=== PATIENT | male | born 1945 | race Two or more races ===

== ENCOUNTER 2017-02-05 07:54 | Emergency (ER) | payer OTHER ==
[2017-02-05 08:07] VITALS: TEMP 98.9; BMI 25.8
--- NOTE | 2017-02-05 08:50 | PDOC ---
History of Present Illness - History of Present Illness Initial Comments: 02/05/17 09:00 The patient is a 71 year old male with a PMH of an enlarged prostate, HTN, and HLD who presents to the ER complaining of difficulty urinating since last night around 6:30pm. In addition to decreased urinary output, patient reports experiencing dizziness and nausea. He denies any recent fevers, chills, or headache. He denies any recent vomit, diarrhea or constipation. He denies any recent chest pain or shortness of breath. He denies any recent frequency or hematuria. <Lucille Jones - Last Filed: 02/05/17 09:11> <Marielle Morgan - Last Filed: 02/05/17 10:52> - General Chief Complaint: Urinary Problem Stated Complaint: UNABLE TO URINATE Time Seen by Provider: 02/05/17 08:50 Past History <Lucille Jones - Last Filed: 02/05/17 09:11> - Past Medical History COPD: No GI Disorders: Yes (ENLARGED PROSTATE) HTN: Yes Hypercholesterolemia: Yes - Suicide/Smoking/Psychosocial Hx Smoking History: Never smoked <Marielle Morgan - Last Filed: 02/05/17 10:52> - Past Medical History Allergies/Adverse Reactions: Allergies Allergy/AdvReac Type Severity Reaction Status Date / Time No Known Allergies Allergy Verified 02/05/17 08:06 Home Medications: Ambulatory Orders Atorvastatin Ca [Lipitor] 40 mg PO HS 02/05/17 Tamsulosin HCl [Flomax] 0.4 mg PO DAILY 02/05/17 Telmisartan [Micardis] 40 mg PO DAILY 02/05/17 Review of Systems - Review of Systems Comments:: 02/05/17 09:02 GENERAL/CONSTITUTIONAL: No fever or chills. No weakness. HEAD, EYES, EARS, NOSE AND THROAT: No change in vision. No ear pain or discharge. No sore throat. GASTROINTESTINAL: +nausea, no vomiting, no diarrhea or constipation. GENITOURINARY: +difficulty urinating. No dysuria, frequency, or change in urination. CARDIOVASCULAR: No chest pain or shortness of breath. RESPIRATORY: No cough, wheezing, or hemoptysis. MUSCULOSKELETAL: No joint or muscle swelling or pain. No neck or back pain. SKIN: No rash NEUROLOGIC: +dizziness. No headache, loss of consciousness, or change in strength/sensation. ENDOCRINE: No increased thirst. No abnormal weight change. HEMATOLOGIC/LYMPHATIC: No anemia, easy bleeding, or history of blood clots. ALLERGIC/IMMUNOLOGIC: No hives or skin allergy. <RobertLucille - Last Filed: 02/05/17 09:11> *Physical Exam - Vital Signs Last Vital Signs Temp Pulse Resp BP Pulse Ox 98.9 F 81 16 157/90 97 02/05/17 08:03 02/05/17 08:03 02/05/17 08:03 02/05/17 08:03 02/05/17 08:03 <RobertLucille - Last Filed: 02/05/17 09:11> - Vital Signs Last Vital Signs Temp Pulse Resp BP Pulse Ox 98.9 F 81 16 157/90 97 02/05/17 08:03 02/05/17 08:03 02/05/17 08:03 02/05/17 08:03 02/05/17 08:03 - Physical Exam Comments: GENERAL: Awake, alert, and fully oriented, in no acute distress. Appears uncomfortable. HEAD: No signs of trauma EYES: PERRLA, EOMI, sclera anicteric, conjunctiva clear ENT: Auricles normal inspection, hearing grossly normal, nares patent, oropharynx clear without exudates. Moist mucosa NECK: Normal ROM, supple, no lymphadenopathy, JVD, or masses LUNGS: Breath sounds equal, clear to auscultation bilaterally. No wheezes, and no crackles HEART: Regular rate and rhythm, normal S1 and S2, no murmurs, rubs or gallops ABDOMEN: Soft, +suprapubic tenderness with bladder distension, normoactive bowel sounds. +Guarding, no rebound. No masses EXTREMITIES: Normal range of motion, no edema. No clubbing or cyanosis. No cords, erythema, or tenderness NEUROLOGICAL: Cranial nerves II through XII grossly intact. Normal speech, normal gait SKIN: Warm, Dry, normal turgor, no rashes or lesions noted. <Marielle Morgan - Last Filed: 02/05/17 10:52> Medical Decision Making - Medical Decision Making 02/05/17 10:26 Pt reassessed. Urine output has been stable at 1400 cc. Reports improvement in symptoms. Stable for DC home with outpatient f/u with Dr. Live. <Marielle Morgan - Last Filed: 02/05/17 10:52> *DC/Admit/Observation/Transfer <Lucille Jones - Last Filed: 02/05/17 09:11> - Discharge Dispostion Admit: No <Marielle Morgan - Last Filed: 02/05/17 10:52> Diagnosis at time of Disposition: Urinary retention - Discharge Dispostion Disposition: HOME Condition at time of disposition: Stable - Referrals Referrals: Minh Live MD [Staff Physician] - - Patient Instructions Printed Discharge Instructions: DI for Urinary Retention in Men
[2017-02-05 09:15] LABS: URINE APPEARANCE CLEAR; URINE BILIRUBIN NEGATIVE (NEGATIVE); URINE BLOOD 2+ (NEGATIVE); URINE COLOR STRAW; URINE GLUCOSE (UA) NEGATIVE (NEGATIVE); URINE KETONE NEGATIVE (NEGATIVE); URINE LEUK ESTERASE NEGATIVE (NEGATIVE); URINE NITRITE NEGATIVE (NEGATIVE); URINE PROTEIN NEGATIVE (NEGATIVE); URINE UROBILINOGEN NEGATIVE mg/dL (0.2-1.0)
[2017-02-05 09:24] LABS: URINE BACTERIA RARE /hpf (NONE SEEN); URINE RBC 11 /hpf (0-3); URINE WBC <1 /hpf (3-5)
[2017-02-05 10:37] VITALS: BP 122/74; PULSE 80
[2017-02-05 14:19] LABS: URINE LEUK ESTERASE Negative (NEGATIVE)
== END 2017-02-05 10:35 | disposition home or self-care (01) ==
LOC: JER 07:54
PROC: 0T9B70Z Drainage of Bladder with Drainage Device, Via Natural or Artificial Opening (ICD-10-PCS; principal; 2017-02-05)
DX: R33.9 Retention of urine, unspecified (principal); N40.0 Benign prostatic hyperplasia without lower urinary tract symptoms; I10 Essential (primary) hypertension; E78.5 Hyperlipidemia, unspecified
CPT/HCPCS: 51702; 81003; 81015; 87086; 99282-25

== ENCOUNTER 2018-05-17 07:21 | Day surgery (SDC) | payer OTHER ==
[2018-05-14 18:18] VITALS: BMI 26.6
[2018-05-17] MEDS ORDERED: SUCCINYLCHOLINE CHLORIDE 200 MG/10 ML VIAL ONE (08:48)
[2018-05-17] MEDS ORDERED: PROPOFOL 20 ML ONE ×4 (08:48→09:51)
[2018-05-17] MEDS ORDERED: MIDAZOLAM HCL 2 MG/2 ML SINGLE DOSE VIAL ONE (08:48)
--- NOTE | 2018-05-17 09:16 | HP ---
History & Physical Update - History History: No Change - Physical Physical: No Change - Assessment Assessment: No Change - Plan Plan: No Change
[2018-05-17] MEDS ORDERED: ceFAZolin SODIUM 1 GM VIAL IVPB ONE (09:40)
--- NOTE | 2018-05-17 09:41 | HP ---
DATE OF ADMISSION: 05/17/2018 HISTORY OF PRESENT ILLNESS: Patient is a 72-year-old male with history of benign prostatic hypertrophy with lower urinary tract symptoms, also has history of an elevated PSA for which he underwent a transrectal ultrasound and then ultrasound-guided biopsy. This came back as negative. Physical examination revealed an atrophic nontender right testicle and a left inguinal hernia. The patients alpha-fetoprotein was persistently elevated. HCG was negative. Ultrasound of the testes revealed an atrophic right testicle. CT scan of the abdomen revealed no lymphadenopathy. The patients white count was 4.9, hemoglobin was 15, hematocrit was 47.5. Random glucose was 104. Liver enzymes including LDH were within normal limits. Patients cholesterol profile was also within normal limits. His PT INR was 11.3/1.01. His last BUN was 17 and creatinine was 0.9. His last serum testosterone was 775. It was explained to the patient that since the testicle is not functioning and completely atrophic plus the fact that the alpha-fetoprotein is elevated that he have the testicle removed. He agreed to the decision. His serum testosterones were always within normal limits. The patient will be scheduled for a right inguinal radical orchiectomy and a left inguinal hernia repair. He does have history of high blood pressure, coronary artery disease, and dyslipidemia. MEDICATIONS: He does take Micardis, atorvastatin, and Flomax. ALLERGIES: He denies any allergies. SOCIAL HISTORY: He denies tobacco. PLAN: Again, removal of the atrophic nonfunctioning right testicle was advised. All possible consequences and side effects were explained in detail to the patient and he agrees. Will proceed with the procedure at [facility]. RADAMES RODRIGUEZ M.D. [id number]
[2018-05-17] MEDS ORDERED: ACETAMINOPHEN 325 MG TABLET (FP) PO PRN (10:33)
[2018-05-17] MEDS ORDERED: HYDROmorphone HCl 2 MG/ML VIAL IM ONE (10:34)
--- NOTE | 2018-05-17 10:39 | OP ---
Operative Note - Note: Operative Date: 05/17/18 Pre-Operative Diagnosis: rt. atrophic testis and ^ brigitte feto protien, lt. inguinal hernia Operation: rt. radical orchiectomy Findings: rt. atrophic testis Implants: none Post-Operative Diagnosis: Same as Pre-op Surgeon: Minh Live Anesthesia: General Specimens Removed: rt. testis and cord Estimated Blood Loss (mls): 10 Drains & Tubes with Location: none Drains, Volume Out (mls): 0 Blood Volume Replaced (mls): 0 Fluid Volume Replaced (mls): 0 Operative Report Dictated: Yes
[2018-05-17] MEDS ORDERED: CEPHALEXIN MONOHYDRATE 500 MG CAPSULE (UD) PO SCH (10:45)
[2018-05-17] MEDS ORDERED: BUPIVACAINE HCL/PF 0.5% (5MG/ML) 10 ML VIAL IJ ONE (10:50)
[2018-05-17] MEDS ORDERED: MEPERIDINE HCL 25 MG/ML VIAL ONE (11:47)
--- NOTE | 2018-05-17 11:54 | OP ---
DATE OF OPERATION: 05/17/2018 PROCEDURE: Left inguinal hernia repair. PREOPERATIVE DIAGNOSIS: Left inguinal hernia. POSTOPERATIVE DIAGNOSIS: Left inguinal hernia. SURGEON: Alfredo Fernandez MD HOSE TENDER: ANGELINA Casillas ANESTHESIA: General via laryngeal mask airway. FINDINGS AND PROCEDURE: This is a 72-year-old male who was suffering from a left inguinal hernia. At the same time patient has atrophic right testicle with elevated AFP levels so the patient was also to undergo a right orchiectomy with Dr. Minh Live and a left inguinal hernia repair was advised. Consent was obtained after discussion of the risks, benefits and alternatives to the procedure. Patient was brought to the operating room and placed in the supine position. General anesthesia via laryngeal mask airway was administered. The abdomen was prepped and draped in the usual sterile fashion. Dr. Minh Live proceeded to perform the right orchiectomy via the inguinal approach. After that using 0.5% Marcaine local anesthesia was administered to proposed incision site. An infected hair follicle was noted to be on the way with the inguinal incision so that a 5-cm skin crease incision of the inguinal canal was made excising the hair follicle with a 1 x 0.5-cm ellipse of skin using scalpel blade # 15. Dissection was carried down through the subcutaneous tissue with Bovie cautery until the external oblique aponeurosis was encountered. The external oblique aponeurosis was incised using Bovie cautery and the inguinal canal was further opened using Metzenbaum scissors. Search for a hernia sac was done and was noted to be absent. A large direct hernia was noted with very attenuated transversalis fascia just medial to the inferior epigastric vessel. This was then dissected free of adhesions from the cremaster muscle and then pushed back to the preperitoneal space. A large mesh plug was deployed and the inguinal floor was reconstructed by apposing the conjoint tendon to the Poupart ligament with tightening of the internal ring just to admit the tip of the surgeon's 5th digit. This was done using a continuous Prolene 0 suture. Afterwards the hernia patch was deployed with its keyhole wrapped around the spermatic cord. The exit site of the ilioinguinal nerve was noted to be under the mesh so this was transected to avoid postoperative inguinodynia. The external oblique aponeurosis was apposed with a continuous Vicryl 3-0 suture. The dermis was also apposed with interrupted Vicryl 3-0 suture and the skin was apposed with continuous Biosyn 4-0 suture. The wound closure was reinforced with Steri-Strips and covered with sterile dressing. The estimated blood loss was about 5 mL. Wound class clean. The patient received a gram of Ancef prior to the start of the procedure. Tamara [id number] MTDD
[2018-05-17] MEDS ORDERED: oxyCODONE HCL 5 MG TABLET PO PRN (12:28)
[2018-05-17] MEDS ORDERED: ONDANSETRON 4 MG/2 ML VIAL IVPUSH PRN (12:28)
[2018-05-17] MEDS ORDERED: LACTATED RINGERS SOLUTION 1,000 ML IV SCH (12:30)
--- NOTE | 2018-05-17 12:53 | OP ---
DATE OF OPERATION: 05/17/2018 PREOPERATIVE DIAGNOSIS: Left inguinal hernia and right atrophic testes with elevated alpha-fetoprotein. OPERATIVE PROCEDURE: By Urology is right inguinal exploration and right radical orchiectomy. By General Surgery is left inguinal hernia repair. DESCRIPTION OF PROCEDURE: Under general anesthesia, the patient was prepped and draped in the usual sterile manner. He was placed in the supine position. A right inguinal incision was made. This was carried down to skin and subcutaneous tissue. Rectus fascia was opened in the direction of its fiber using both blunt and sharp dissection. The cord was isolated. Using a vascular clamp, high clamping of the cord was first performed. The testicle was then freed from the gubernaculum and brought out the wound. The testicle appeared to be atrophic and indurated. Therefore, high ligation of the spermatic cord was performed. Then 0 silk ties were used at the proximal edge of the cord for further evaluation in the future. The testicle, the epididymitis, and the spermatic cord were removed en bloc. The wound was irrigated. External oblique fascia was closed with running 3-0 Vicryl suture ligatures. The subcutaneous was closed with 3-0 Vicryl suture ligatures. Marcaine anesthesia was placed into the wound for long-term analgesia. The wound was closed with judy. The patient tolerated the procedure well. The general surgeon will be dictating his portion. Tamara [id number]
[2018-05-17] MEDS ORDERED: MEPERIDINE HCL 25 MG/ML VIAL IVPUSH ONE (12:59)
[2018-05-17 13:21] VITALS: PULSE 77
[2018-05-17 15:36] VITALS: BP 117/69; TEMP 98.6
--- NOTE | 2018-05-17 16:37 | SURG ---
Surgery Kiln Puller Note Kiln Puller: Hawa Casillas PA-C (Suzy) Date of Service: 05/17/18 Diagnosis: Left inguinal hernia Procedure: Left inguinal hernia repair with mesh I was present for the entirety of the operative procedure. For further detail, please refer to operative report. Visit type - Case Type Case Type: Scheduled - Emergency Emergency Visit: No - New patient This patient is new to me today: Yes Date on this admission: 05/17/18 - Critical Care Critical Care patient: No
--- NOTE | 2018-05-17 16:43 | OP ---
Operative Note - Note: Operative Date: 05/17/18 Pre-Operative Diagnosis: Left inguinal hernia Operation: Left inguinal hernia repair with mesh Findings: as dictated Implants: as dictated Post-Operative Diagnosis: Same as Pre-op Surgeon: Alfredo Fernandez Spa Manager: Hawa Casillas Anesthesiologist/TESTING LEAD: Lashonda Campos Anesthesia: General, Local Specimens Removed: Left inguinal nerve, infected hair follicle Estimated Blood Loss (mls): 50 (ml) Fluid Volume Replaced (mls): 1 (L LR ) Operative Report Dictated: Yes
--- NOTE | 2018-05-20 14:57 | PATH ---
Surgical Pathology Report Patient Name: PASTOR JESSICA [facility]. Rec. #: [id number] /Age/Gender: 1945 (Age: 72) / M Account: [id number] Location: [facility] SURGICAL Taken: 05/17/2018 Received: 05/17/2018 Reported: 05/20/2018 Physicians: Minh Live M.D. Specimen(s) Received A: RIGHT TESTICLE AND CORD B: LEFT ABDOMEN C: ILEOINGUINAL NERVE Clinical History Atrophy of testes, left inguinal hernia Final Diagnosis A. TESTICLE AND CORD, RIGHT, RADICAL ORCHIECTOMY: TESTES WITH EXTENSIVE SEMINIFEROUS TUBULE HYALINIZATION. FOCAL AREAS WITH NORMAL SPERMATOGENESIS NOTED. SPERMATIC CORD WITHOUT SIGNIFICANT PATHOLOGIC FINDINGS. NO MALIGNANCY IDENTIFIED. B. LOWER ABDOMEN, LEFT, FOLLICULITIS, EXCISION: SKIN AND UNDERLYING SUBCUTANEOUS TISSUE WITH MARKED ACUTE INFLAMMATION, ABSCESS FORMATION, AND REACTIVE CHANGES. C. ILIOINGUINAL NERVE, EXCISION: BENIGN FIBROVASCULAR AND NERVE TISSUE. Electronically Signed Velia Glaser M.D. Gross Description A. Received in formalin labeled "right testicle and cord," is a 34 g, 4.0 x 3.0 x 1.6 cm testis with a 2.7 x 1.0 x 1.0 cm epididymis and a 5 cm in length portion of spermatic cord. Sectioning reveals monique, spongy, unremarkable testicular parenchyma. No discrete lesion is identified. The spermatic cord appears unremarkable. Tack Welder sections are submitted in 6 cassettes as follows: 1-spermatic cord margin of resection; 2-testicular parenchyma; 3-testicular parenchyma with tunica; 4-testicular parenchyma with epididymis; 5-testicular parenchyma with rete testis; 6-additional spermatic cord. B. Received in formalin labeled "folliculitis from left lower abdomen," is a 1.1 x 0.6 cm monique, elliptical, unoriented portion of skin excised to depth of 1.2 cm. No discrete epidermal lesion is identified. The specimen is serially sectioned. Separately received within the same container are 2 monique-yellow portions of soft tissue averaging 2.5 cm in greatest dimension. The specimen is entirely submitted in 2 cassettes as follows: 1-serially sectioned skin ellipse; 2-separately received soft tissue fragments. C. Received in formalin labeled "ileo-inguinal nerve," is a 3.7 x 0.5 x 0.3 cm monique-gan portion of soft tissue, possibly consistent with a portion of nerve. The specimen is submitted in toto in one cassette. 05/17/201805/17/2018
== END 2018-05-17 14:30 | disposition home or self-care (01) ==
LOC: JASU-SURG 07:21
PROVIDERS: ATTEND Urology
PROC: 0VBF0ZZ Excision of Right Spermatic Cord, Open Approach (ICD-10-PCS; 2018-05-17)
PROC: 0YQ60ZZ Repair Left Inguinal Region, Open Approach (ICD-10-PCS; 2018-05-17)
PROC: 0VT90ZZ Resection of Right Testis, Open Approach (ICD-10-PCS; principal; 2018-05-17 09:00)
PROC: 0VTJ0ZZ Resection of Right Epididymis, Open Approach (ICD-10-PCS; 2018-05-17 09:00)
DX: N50.0 Atrophy of testis (principal); K40.90 Unilateral inguinal hernia, without obstruction or gangrene, not specified as recurrent
CPT/HCPCS: 88302-TC; 88305-TC; 94760

== ENCOUNTER 2019-04-16 07:18 | Day surgery (SDC) | payer OTHER ==
[2019-04-15 16:12] VITALS: BMI 27.7
[2019-04-16 08:45] VITALS: TEMP 97.8
[2019-04-16 09:06] VITALS: PULSE 70
[2019-04-16 13:22] VITALS: BP 144/69
--- NOTE | 2019-04-17 14:12 | PATH ---
Surgical Pathology Report Patient Name: PASTOR JESSICA [facility]. Rec. #: [id number] /Age/Gender: 1945 (Age: 73) / M Account: [id number] Location: [facility]-ENDOSCOPY Taken: 04/16/2019 Received: 04/16/2019 Reported: 04/17/2019 Physicians: Tri Jackson M.D. Specimen(s) Received A: DUODENUM, SECOND PORTION AND BULB B: ANTRUM C: SIGMOID POLYPS D: RECTAL POLYPS Clinical History Adenoma surveillance, occult blood GI bleed Postoperative diagnosis: Erosive gastritis, diverticulosis Final Diagnosis A. DUODENUM, SECOND PORTION AND BULB, BIOPSY: DUODENAL MUCOSA WITHOUT SIGNIFICANT PATHOLOGIC FINDINGS. B. STOMACH, ANTRUM, BIOPSY: GASTRIC ANTRAL MUCOSA WITH MILD CHRONIC GASTRITIS AND FOCAL EROSION. IMMUNOHISTOCHEMICAL STAIN FOR H. PYLORI IS NEGATIVE. C. SIGMOID COLON, POLYPS, BIOPSY: HYPERPLASTIC POLYP. SEPARATE FRAGMENTS OF POLYPOID COLONIC MUCOSA WITH PROMINENT LYMPHOID AGGREGATE. D. RECTAL POLYP, BIOPSY: HYPERPLASTIC POLYP(S). Positive and negative controls (internal if applicable) show appropriate results. Electronically Signed Velia Glaser M.D. Gross Description A. Received in formalin, labeled "biopsy bulb and second portion of duodenum" are 3 monique, irregular portions of soft tissue averaging 0.4 cm. in greatest dimension. The specimens are submitted in toto in one cassette. B. Received in formalin, labeled "antrum biopsy" are 4 monique, irregular portions of soft tissue ranging from 0.2-0.6 cm. in greatest dimension. The specimens are submitted in toto in one cassette. C. Received in formalin, labeled "sigmoid polyps" are 3 monique, irregular portions of soft tissue ranging from 0.2-0.3 cm. in greatest dimension. The specimens are submitted in toto in one cassette. D. Received in formalin, labeled "rectal polyp" is a monique, irregular portion of soft tissue measuring 0.3 cm. in greatest dimension. The specimen is submitted in toto in one cassette. 04/16/2019 saudi04/16/2019
== END 2019-04-16 09:39 | disposition home or self-care (01) ==
LOC: JASU-ENDO 07:18
PROVIDERS: ATTEND Internal Medicine Gastroenterology
PROC: 0DBP8ZX Excision of Rectum, Via Natural or Artificial Opening Endoscopic, Diagnostic (ICD-10-PCS; 2019-04-16)
PROC: 0DB98ZX Excision of Duodenum, Via Natural or Artificial Opening Endoscopic, Diagnostic (ICD-10-PCS; 2019-04-16)
PROC: 0DB78ZX Excision of Stomach, Pylorus, Via Natural or Artificial Opening Endoscopic, Diagnostic (ICD-10-PCS; 2019-04-16)
PROC: 0DBN8ZX Excision of Sigmoid Colon, Via Natural or Artificial Opening Endoscopic, Diagnostic (ICD-10-PCS; principal; 2019-04-16 08:00)
DX: Z86.010 Personal history of colon polyps (principal); D12.5 Benign neoplasm of sigmoid colon; K62.1 Rectal polyp; R19.5 Other fecal abnormalities; K57.30 Diverticulosis of large intestine without perforation or abscess without bleeding; K64.8 Other hemorrhoids; K29.50 Unspecified chronic gastritis without bleeding; K29.60 Other gastritis without bleeding

== ENCOUNTER 2022-09-13 22:15 | Inpatient (IN) | payer OTHER ==
[2022-09-13 23:17] LABS: BASO % 0.3 % (0-2.0); EOS % 0.1 % (0-4.5); HEMOGLOBIN 13.3 GM/dL (11.7-16.9); LYMPH % 7.6 % (8-40); MCH 31.6 pg (25.7-33.7); MEAN CELL VOLUME 92.9 fl (80-96); MEAN PLT VOLUME 7.5 fl (7.5-11.1); MONO % 5.1 % (3.8-10.2); NEUT % 86.9 % (42.8-82.8); PLATELET COUNT 162 10^3/uL (134-434); RBC 4.19 M/mm3 (4.00-5.60); RDW 13.6 % (11.9-15.9); WHITE BLOOD COUNT 12.6 K/mm3 (4.0-10.0)
[2022-09-13 23:27] LABS: INR 1.11 (0.83-1.09); PROTHROMBIN TIME (PATIENT) 12.9 SEC (9.7-13.0)
[2022-09-13 23:30] LABS: ACTIVATED PTT 22.7 SECONDS (25.2-36.5)
[2022-09-13] MEDS ORDERED: ACETAMINOPHEN 1000 MG/100 ML BAG IVPB ONE (23:31)
[2022-09-13] MEDS ORDERED: ACETAMINOPHEN INJECTION 100 ML IVPB ONE (23:38)
[2022-09-13 23:44] LABS: POTASSIUM 3.6 mmol/L (3.5-5.1)
[2022-09-13 23:46] LABS: ALBUMIN 3.6 g/dl (3.4-5.0); CALCIUM 8.5 mg/dL (8.5-10.1)
[2022-09-13 23:47] LABS: BLOOD UREA NITROGEN 19.7 mg/dL (7-18)
[2022-09-13 23:51] LABS: TOT PROT 6.7 g/dl (6.4-8.2)
[2022-09-14] MEDS ORDERED: MELATONIN 1 MG TABLET PO ONE (02:54)
[2022-09-14 05:12] VITALS: BMI 27.1
[2022-09-14 10:59] LABS: HEMATOCRIT 36.2 % (35.4-49); MCH 31.4 pg (25.7-33.7); MCHC 33.2 g/dl (32.0-35.9); MEAN CELL VOLUME 94.6 fl (80-96); MEAN PLT VOLUME 9.1 fl (7.5-11.1); PLATELET COUNT 166 10^3/uL (134-434); RBC 3.83 M/mm3 (4.00-5.60); RDW 13.2 % (11.9-15.9); WHITE BLOOD COUNT 11.9 K/mm3 (4.0-10.0)
[2022-09-14 11:17] LABS: POTASSIUM 3.7 mmol/L (3.5-5.1)
[2022-09-14 11:22] LABS: BLOOD UREA NITROGEN 13.5 mg/dL (7-18); CALCIUM 8.6 mg/dL (8.5-10.1)
[2022-09-14 11:26] LABS: CREATININE 0.8 mg/dL (0.55-1.3)
[2022-09-14 12:09] LABS: EPI CELLS 27 /uL (0-25.1); HYALINE CASTS 0 /uL (0-3.1); URINE APPEARANCE CLEAR; URINE BACTERIA 0 /uL (0-1359); URINE BILIRUBIN NEGATIVE (NEGATIVE); URINE COLOR RED; URINE GLUCOSE (UA) NEGATIVE (NEGATIVE); URINE KETONE NEGATIVE (NEGATIVE); URINE LEUK ESTERASE 2+ (NEGATIVE); URINE NITRITE NEGATIVE (NEGATIVE); URINE PROTEIN 2+ (NEGATIVE); URINE RBC 2219 /uL (0-23.9); URINE UROBILINOGEN 0.2 mg/dL (0.2-1.0); URINE WBC 28 /uL (0-25.8)
[2022-09-14] MEDS: amLODIPine BESYLATE 10 MG TABLET (FP) PO SCH (13:09)
[2022-09-14] MEDS: TAMSULOSIN HCL 0.4 MG CAP PO SCH (13:09)
[2022-09-14] MEDS: LOSARTAN POTASSIUM 50 MG TABLET PO SCH (13:09)
[2022-09-14] MEDS: PANTOPRAZOLE 40 MG TABLET PO SCH (13:09)
[2022-09-14] MEDS: FINASTERIDE 5 MG TABLET (FP) PO SCH (13:10)
[2022-09-14] MEDS: CEFTRIAXONE 1 GM in DEXTROSE 5%-WATER - 50 ML IVPB SCH (16:59)
[2022-09-14] MEDS: MELATONIN 1 MG TABLET PO SCH (21:47)
[2022-09-14] MEDS: ATORVASTATIN CA 10 MG TABLET (FP) PO SCH (21:47)
[2022-09-15 03:28] LABS: EPI CELLS 14 /uL (0-25.1); HYALINE CASTS 1 /uL (0-3.1); PH,URINE 5.5 (5.0-8.0); URINE APPEARANCE CLOUDY; URINE BACTERIA 0 /uL (0-1359); URINE BILIRUBIN NEGATIVE (NEGATIVE); URINE COLOR RED; URINE GLUCOSE (UA) NEGATIVE (NEGATIVE); URINE KETONE NEGATIVE (NEGATIVE); URINE LEUK ESTERASE 3+ (NEGATIVE); URINE NITRITE NEGATIVE (NEGATIVE); URINE PROTEIN TRACE (NEGATIVE); URINE UROBILINOGEN 0.2 mg/dL (0.2-1.0); URINE WBC 217 /uL (0-25.8)
[2022-09-15 06:29] LABS: YEAST NONE SEEN (NEGATIVE)
[2022-09-15] MEDS: TAMSULOSIN HCL 0.4 MG CAP PO SCH (08:44)
[2022-09-15] MEDS: PANTOPRAZOLE 40 MG TABLET PO SCH (10:39)
[2022-09-15] MEDS: CEFTRIAXONE 1 GM in DEXTROSE 5%-WATER - 50 ML IVPB SCH (10:39)
[2022-09-15] MEDS: LOSARTAN POTASSIUM 50 MG TABLET PO SCH (10:40)
[2022-09-15] MEDS: amLODIPine BESYLATE 10 MG TABLET (FP) PO SCH (10:40)
[2022-09-15] MEDS: FINASTERIDE 5 MG TABLET (FP) PO SCH (10:40)
[2022-09-15] MEDS ORDERED: oxyCODONE HCL 5 MG TABLET PO PRN (11:31)
[2022-09-15] MEDS ORDERED: ACETAMINOPHEN 325 MG TABLET (FP) PO PRN (11:31)
[2022-09-15 13:43] LABS: BASO % 0.5 % (0-2.0); EOS % 1.1 % (0-4.5); HEMATOCRIT 39.1 % (35.4-49); HEMOGLOBIN 13.2 GM/dL (11.7-16.9); LYMPH % 17.9 % (8-40); MCH 32.2 pg (25.7-33.7); MCHC 33.7 g/dl (32.0-35.9); MEAN CELL VOLUME 95.6 fl (80-96); MEAN PLT VOLUME 8.6 fl (7.5-11.1); MONO % 7.8 % (3.8-10.2); NEUT % 72.7 % (42.8-82.8); PLATELET COUNT 190 10^3/uL (134-434); RBC 4.09 M/mm3 (4.00-5.60); RDW 13.8 % (11.9-15.9); WHITE BLOOD COUNT 8.3 K/mm3 (4.0-10.0)
[2022-09-15 14:29] LABS: CALCIUM 9.3 mg/dL (8.5-10.1)
[2022-09-15 14:33] LABS: BLOOD UREA NITROGEN 12.3 mg/dL (7-18); POTASSIUM 3.9 mmol/L (3.5-5.1)
[2022-09-15] MEDS ORDERED: CEFTRIAXONE 1 GM in DEXTROSE 5%-WATER - 50 ML IVPB SCH (15:45)
[2022-09-15] MEDS: ATORVASTATIN CA 10 MG TABLET (FP) PO SCH (22:02)
[2022-09-15] MEDS: MELATONIN 1 MG TABLET PO SCH (22:02)
[2022-09-16] MEDS: TAMSULOSIN HCL 0.4 MG CAP PO SCH (08:17)
[2022-09-16] MEDS: amLODIPine BESYLATE 10 MG TABLET (FP) PO SCH (09:49)
[2022-09-16] MEDS: LOSARTAN POTASSIUM 50 MG TABLET PO SCH (09:49)
[2022-09-16] MEDS: PANTOPRAZOLE 40 MG TABLET PO SCH (09:49)
[2022-09-16] MEDS: FINASTERIDE 5 MG TABLET (FP) PO SCH (09:49)
[2022-09-16] MEDS: CEFTRIAXONE 1 GM in DEXTROSE 5%-WATER - 50 ML IVPB SCH (09:50)
[2022-09-16 10:07] LABS: BASO % 0.8 % (0-2.0); EOS % 2.7 % (0-4.5); HEMATOCRIT 36.8 % (35.4-49); HEMOGLOBIN 12.8 GM/dL (11.7-16.9); LYMPH % 15.3 % (8-40); MCH 32.7 pg (25.7-33.7); MCHC 34.8 g/dl (32.0-35.9); MEAN CELL VOLUME 93.9 fl (80-96); MEAN PLT VOLUME 8.2 fl (7.5-11.1); MONO % 6.5 % (3.8-10.2); NEUT % 74.7 % (42.8-82.8); PLATELET COUNT 187 10^3/uL (134-434); RBC 3.92 M/mm3 (4.00-5.60); RDW 13.7 % (11.9-15.9); WHITE BLOOD COUNT 7.5 K/mm3 (4.0-10.0)
[2022-09-16 10:30] LABS: BLOOD UREA NITROGEN 13.1 mg/dL (7-18)
[2022-09-16 10:34] LABS: CREATININE 1.1 mg/dL (0.55-1.3)
[2022-09-16] MEDS: ATORVASTATIN CA 10 MG TABLET (FP) PO SCH (21:45)
[2022-09-16] MEDS: MELATONIN 1 MG TABLET PO SCH (21:46)
[2022-09-17] MEDS: TAMSULOSIN HCL 0.4 MG CAP PO SCH (08:45)
[2022-09-17] MEDS: amLODIPine BESYLATE 10 MG TABLET (FP) PO SCH (09:30)
[2022-09-17] MEDS: CEFTRIAXONE 1 GM in DEXTROSE 5%-WATER - 50 ML IVPB SCH (09:30)
[2022-09-17] MEDS: LOSARTAN POTASSIUM 50 MG TABLET PO SCH (09:31)
[2022-09-17] MEDS: PANTOPRAZOLE 40 MG TABLET PO SCH (09:31)
[2022-09-17] MEDS: FINASTERIDE 5 MG TABLET (FP) PO SCH (09:31)
[2022-09-17 10:59] LABS: BASO % 0.7 % (0-2.0); EOS % 2.3 % (0-4.5); HEMATOCRIT 38.5 % (35.4-49); HEMOGLOBIN 12.7 GM/dL (11.7-16.9); LYMPH % 13.6 % (8-40); MCH 31.8 pg (25.7-33.7); MEAN CELL VOLUME 96.3 fl (80-96); MEAN PLT VOLUME 8.6 fl (7.5-11.1); MONO % 6.6 % (3.8-10.2); NEUT % 76.8 % (42.8-82.8); PLATELET COUNT 208 10^3/uL (134-434); RDW 13.9 % (11.9-15.9); WHITE BLOOD COUNT 7.5 K/mm3 (4.0-10.0)
[2022-09-17 11:18] LABS: POTASSIUM 4.2 mmol/L (3.5-5.1)
[2022-09-17 11:24] LABS: BLOOD UREA NITROGEN 12.6 mg/dL (7-18); CALCIUM 8.8 mg/dL (8.5-10.1)
[2022-09-17] MEDS: POLYETHYLENE GLYCOL (HEALTHYLAX) 3350 17 GM PACKET PO SCH ×2 (13:51→21:22)
[2022-09-17] MEDS: MELATONIN 1 MG TABLET PO SCH (21:22)
[2022-09-17] MEDS: ATORVASTATIN CA 10 MG TABLET (FP) PO SCH (21:22)
[2022-09-18 00:55] VITALS: RESP 18
[2022-09-18] MEDS: TAMSULOSIN HCL 0.4 MG CAP PO SCH (10:10)
[2022-09-18] MEDS: amLODIPine BESYLATE 10 MG TABLET (FP) PO SCH (10:10)
[2022-09-18] MEDS: FINASTERIDE 5 MG TABLET (FP) PO SCH (10:10)
[2022-09-18] MEDS: CEFTRIAXONE 1 GM in DEXTROSE 5%-WATER - 50 ML IVPB SCH (10:10)
[2022-09-18] MEDS: PANTOPRAZOLE 40 MG TABLET PO SCH (10:10)
[2022-09-18] MEDS: LOSARTAN POTASSIUM 50 MG TABLET PO SCH (10:10)
[2022-09-18] MEDS: POLYETHYLENE GLYCOL (HEALTHYLAX) 3350 17 GM PACKET PO SCH ×2 (10:10→10:16)
[2022-09-18 10:30] LABS: BASO % 0.9 % (0-2.0); EOS % 2.1 % (0-4.5); HEMATOCRIT 38.2 % (35.4-49); HEMOGLOBIN 12.9 GM/dL (11.7-16.9); LYMPH % 17.2 % (8-40); MCH 31.9 pg (25.7-33.7); MCHC 33.9 g/dl (32.0-35.9); MEAN CELL VOLUME 94.2 fl (80-96); MONO % 5.7 % (3.8-10.2); NEUT % 74.1 % (42.8-82.8); PLATELET COUNT 215 10^3/uL (134-434); RBC 4.06 M/mm3 (4.00-5.60); RDW 13.9 % (11.9-15.9); WHITE BLOOD COUNT 6.2 K/mm3 (4.0-10.0)
[2022-09-18 10:47] VITALS: BP 141/72; PULSE 74; TEMP 99
[2022-09-18 10:50] LABS: POTASSIUM 4.1 mmol/L (3.5-5.1)
[2022-09-18 10:59] LABS: CALCIUM 8.9 mg/dL (8.5-10.1)
[2022-09-18 11:01] LABS: BLOOD UREA NITROGEN 12.5 mg/dL (7-18)
[2022-09-18 11:04] LABS: CREATININE 1.1 mg/dL (0.55-1.3)
== END 2022-09-18 11:10 | disposition home or self-care (01) | DRG 921 ==
LOC: JER 22:15 → JERBED 09-14 00:49 → J5S 09-14 03:49
PROVIDERS: ADMIT Internal Medicine; ATTEND Internal Medicine
DX: N99.820 Postprocedural hemorrhage of a genitourinary system organ or structure following a genitourinary system procedure (principal); R31.9 Hematuria, unspecified; I10 Essential (primary) hypertension; E78.5 Hyperlipidemia, unspecified; R33.9 Retention of urine, unspecified; G20 Parkinson's disease; K59.00 Constipation, unspecified; Y83.8 Other surgical procedures as the cause of abnormal reaction of the patient, or of later complication, without mention of misadventure at the time of the procedure
CPT/HCPCS: 36415; 80048; 80053; 81003; 85025; 85027; 85610; 85730; 86850; 86900; 86901; 87086; 93005; 93010; 99285-25